=== PATIENT | female | born 1985 | race Caucasian/White ===

== ENCOUNTER 2016-10-25 07:33 | Emergency (ER) | payer SELFPAY ==
--- NOTE | ~2016-10-25 | CR63 ---
[facility] A Service of [facility] RADIOLOGY TEXT RESULTS PATIENT: KERA WOODS LOCATION: [facility] : [birth year] UNIT #: [id number] AGE: [address]: Lenin Campos MD SEX: F ORDER DR: [id number] [id number] MR#: [id number] Acc #: [id number] NAME: KERA WOODS : 1985 SEX: F STUDY DATE/TIME: 10/25/2016 7:59 UNIT: [facility] ROOM: STUDY DESCRIPTION: CR Chest 2 View Attending Physician: Lenin Campos M.D. Ordering Physician: Lenin Campos M.D. Primary Care Physician: Primary Care Physician No MEDICAL IMAGING REPORT This report is preliminary unless electronic signature is present EXAM Chest x-ray HISTORY Shortness of breath, cough and fever for the past 2 weeks. TECHNIQUE 2 views of the chest were obtained and compared with 09/23/2012. FINDINGS PA and lateral examination of the chest upright shows a good expansion of the parenchyma with a normal distribution of the pulmonary vascularity. There is no indication of congestion, effusion, infiltrate, tumor, or nodular density. The pleural reflections and diaphragmatic contours are normal. The cardiac silhouette and mediastinal anatomy is within normal limits. IMPRESSION Normal chest. Dictated by... Michael Horton M.D. THIS IS AN ELECTRONICALLY VERIFIED REPORT Michael Horton M.D. at 10/25/2016 4:46 PM HERMILAF/hunter TD: 10/25/2016 12:53 JOB #: [id number] MEDICAL IMAGING REPORT [facility] A Service of [facility] RADIOLOGY TEXT RESULTS PATIENT: KERA WOODS LOCATION: [facility] : [birth year] UNIT #: [id number] AGE: [address]: Lenin Campos MD SEX: F ORDER DR: COPY
[~2016-10-25 07:33] MED LIST: AMOXICILLIN PO; AMOXICILLIN500 M1 PO; CORTISPORI10 ML OTIC AD; VICODIN PO; ZITHROMAX PO; ZOFRAN8 MG PO
== END 2016-10-25 08:55 | disposition home or self-care (01) ==
LOC: CED 07:33
DX: J06.9 Acute upper respiratory infection, unspecified (principal)
CPT/HCPCS: 71020; 99283